=== PATIENT | female | born 1960 | race Two or more races ===

== ENCOUNTER → 2016-12-09 | Outpatient (CLI) | payer MEDICARE, OTHER ==
[2016-12-09 09:11] LABS: Blood Urea Nitrogen 12 mg/dL (7-17); Non-African American GFR(MDRD) >60 (>60 ml/min/1.73 sqM)
[2016-12-09 10:51] LABS: Potassium 3.9 mmol/L (3.5-5.1)
--- NOTE | 2016-12-09 13:06 | MR ---
MR brain and cervical spine with and without contrast HISTORY: TIA, cervical radiculopathy, multiple sclerosis Multiplanar multisequence and postcontrast images obtained through the brain and cervical spine follo wing 20 cc MultiHance IV Correlation to prior MR internal auditory canals 24 Dec 2009 MR brain with and without contrast: There is no restricted diffusion. The oval focus of cerebral spin al fluid signal intensity within the centrum semiovale in the right frontal lobe measures 13 x 17 mm and is increased in size compared to previous when it measured approximately 12 x 10 mm. There is no contrast enhancement following contrast administration. There are scattered hyperintensities within the periventricular and subcortical and juxtacortical whi te matter on inversion recovery and T2-weighted sequences, the largest measures approximately 9 x 4 m m on sagittal image 10 of the inversion recovery dataset. On the right the largest measures approxima tely 5 x 3 mm on sagittal image 26 of the same data set. There are approximately 20-30 lesions. The corpus callosum, cervical medullary junction, cerebellopontine angles are normal. There is a part ially empty sella. The orbits show symmetric appearance. There are normal vascular flow voids. There is no hemorrhage or hydrocephalus. IMPRESSION: Correlate for multiple sclerosis. Parenchymal cystic focus shows slight interval increase in size. Cervical spine MRI with and without contrast: Cervical vertebral bodies show preserved height and ali gnment. Spondylosis is most notable at C5-6 and C6-7 with associated loss of disc height and signal. Cervical cord signal is maintained. C2-3: Within normal limits C3-4: Unremarkable C4-5: Left-sided foraminal encroachment is present. Small central posterior disc protrusion causes mi ld anterior mass effect on the thecal sac and may contact the anterior cervical cord. C5-6: Bilateral foraminal encroachment is present. There is moderate to severe central canal stenosis , posterior disc herniation is present contacting the anterior cervical cord. C6-7: Posterior broad-based disc bulge, extension of endplate disc complex causes anterior mass effec t on the thecal sac, contacts anterior cervical cord causing moderate to severe central stenosis. Lef t sided foraminal encroachment is present. C7-T1: Within normal limits No significant foraminal encroachment. IMPRESSION: Multilevel degenerative disc disease, spinal stenosis or foraminal encroachment.
== END | disposition home or self-care (01) ==
LOC: RADMRIMAIN 08:47
PROVIDERS: ATTEND Psychiatry & Neurology Neurology
DX: M50.322 Other cervical disc degeneration at C5-C6 level (principal); M48.02 Spinal stenosis, cervical region; R42 Dizziness and giddiness; G35 Multiple sclerosis
CPT/HCPCS: 84439; 84481; 80051; 82607; 82565; 82746; 84443; 84450; 84460; 84520; 70553; 72156; A9577